=== PATIENT | male | born 1945 | race Caucasian/White ===

== ENCOUNTER 2017-01-12 15:34 | Emergency (ER) | payer MEDICARE ==
--- NOTE | ~2017-01-12 | CR116 ---
[facility] A Service of [facility] RADIOLOGY TEXT RESULTS PATIENT: MARILOU JOHNSON LOCATION: CFTX : 49 UNIT #: [id number] AGE: [address]: Argelia Hackett APRN SEX: M ORDER DR: [id number] [facility] [address] [place], [place] [address] [id number] E MR#: [id number] Acc #: [id number] NAME: MARILOU JOHNSON : 1945 SEX: M STUDY DATE/TIME: 01/12/2017 15:42 UNIT: [facility] ROOM: STUDY DESCRIPTION: CR Finger 2 View Thumb Lt Attending Physician: Argelia Hackett A.P.R.N. Ordering Physician: Inder Coreas M.D. Primary Care Physician: No Primary Care Physician MEDICAL IMAGING REPORT This report is preliminary unless electronic signature is present EXAM 3 views of the left thumb. HISTORY Laceration today and pain. COMPARISON There are no comparisons. FINDINGS There is a laceration to the volar aspect of the tip of the thumb. There is no radiopaque foreign body or underlying fracture. There is some mild degenerative change involving the IP joint. IMPRESSION Laceration to the tip of the thumb. No underlying radiopaque foreign body or fracture. Dictated by... Ranjith Smiley M.D. THIS IS AN ELECTRONICALLY VERIFIED REPORT Ranjith Smiley M.D. at 01/14/2017 9:02 AM JF/addy TD: 01/12/2017 18:41 JOB #: [id number] MEDICAL IMAGING REPORT Page 1 of 1 COPY
== END 2017-01-12 17:34 | disposition home or self-care (01) ==
LOC: CFTX 15:34
DX: S61.012A Laceration without foreign body of left thumb without damage to nail, initial encounter (principal); I10 Essential (primary) hypertension; Z88.0 Allergy status to penicillin; Z88.2 Allergy status to sulfonamides; W27.8XXA Contact with other nonpowered hand tool, initial encounter; Y92.009 Unspecified place in unspecified non-institutional (private) residence as the place of occurrence of the external cause
CPT/HCPCS: 12001; 73140; 90471; 90715; 99283